=== PATIENT | female | born 1975 | race Caucasian/White ===

== ENCOUNTER 2016-09-08 17:29 | Emergency (ER) | payer OTHER, MEDICAID ==
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
[2016-09-08 17:47] VITALS: BP 117/78; PULSE 79; RESP 16; TEMP 98.1; O2SAT 97
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
== END 2016-09-08 18:24 | disposition home or self-care (01) ==
LOC: EDSEX 17:29
DX: S16.1XXA Strain of muscle, fascia and tendon at neck level, initial encounter (principal); V43.52XA Car driver injured in collision with other type car in traffic accident, initial encounter; Y92.410 Unspecified street and highway as the place of occurrence of the external cause; Y99.8 Other external cause status; Y93.89 Activity, other specified